=== PATIENT | female | born 1955 | race Caucasian/White ===

== ENCOUNTER 2022-01-24 13:43 | Outpatient (CLI) | payer MEDICARE | END 2022-01-24 13:44 | disposition home or self-care (01) | LOC: DTY/OP 13:43 | PROVIDERS: ATTEND Surgery | DX: E66.01 Morbid (severe) obesity due to excess calories (principal) | CPT/HCPCS: 97802 ==

== ENCOUNTER 2022-04-14 08:31 | Outpatient (CLI) | payer MEDICARE ==
[2022-04-14 09:55] LABS: #Eosinphils 0.2 10x3/uL (0.0-0.5); #Monocytes 0.6 10x3/uL (0.0-1.1); #Neutrophils 3.7 10x3/uL (1.5-8.4); %Basophils 0.5 % (0.0-2.0); %Eosinophils 3.1 % (0.0-6.0); %Lymphocytes 27.2 % (18.0-47.0); %Monocytes 9.2 % (0.0-10.0); %Neutrophils 59.8 % (40.0-75.0); Hemoglobin 13.9 g/dL (12.0-15.5); Mean Corpuscular HGB CONC 33.3 g/dL (32.0-36.0); Mean Corpuscular Hemoglobin 30.5 pg (27.0-33.0); Mean Corpuscular Volume 91.6 fl (81.6-98.3); Mean Platelet Volume 12.5 fl (7.4-10.4); Platelet Count 259 10x3/uL (150-450); RBC Distribution Width 13.2 % (11.5-14.5); Red Blood Cell (RBC) Count 4.55 10x6/uL (3.90-5.03); White Blood Cell (WBC) Count 6.1 10x3/uL (3.5-10.5)
[2022-04-14 10:59] LABS: ALT (SGPT) 37 U/L (8-55); AST (SGOT) 26 U/L (5-34); Albumin 4.1 g/dL (3.4-4.8); Alkaline Phosphatase 72 U/L (40-110); Anion Gap 14 mmol/L (10-20); BUN (Urea Nitrogen) 42 mg/dL (9.8-20.1); Bilirubin, Total 0.6 mg/dL (0.2-1.2); Calc. Creatinine Clearance 0 mL/min (70-130); Calcium 11.3 mg/dL (7.8-10.44); Carbon Dioxide 28 mmol/L (23-31); Chloride 103 mmol/L (98-107); Estimated GFR 51; Glucose 124 mg/dL (80-115); Potassium 4.1 mmol/L (3.5-5.1); Protein, Total 7.1 g/dL (5.8-8.1); Sodium 141 mmol/L (136-145)
[2022-04-14 12:35] LABS: Hemoglobin A1c 6.4 % (4.0-6.0)
== END 2022-04-14 08:32 | disposition home or self-care (01) ==
LOC: LABBT 08:31
PROVIDERS: ATTEND Surgery
DX: Z01.818 Encounter for other preprocedural examination (principal); K44.9 Diaphragmatic hernia without obstruction or gangrene; E66.01 Morbid (severe) obesity due to excess calories; Z20.822 Contact with and (suspected) exposure to COVID-19
CPT/HCPCS: 71046; 80053; 83036; 85025; 87811

== ENCOUNTER 2022-04-14 09:00 | Inpatient (IN) | payer MEDICARE ==
[2022-04-17 11:25] VITALS: BMI 42.4
[2022-04-19] MEDS ORDERED: fentaNYL Citrate/PF 100 MCG/2 ML SYRINGE ONE (06:28)
[2022-04-19] MEDS ORDERED: SUGAMMADEX SODIUM 200 MG/2 ML VIAL ONE ×2 (06:28→10:05)
[2022-04-19] MEDS ORDERED: Ketamine 50 MG/ML (10ML VIAL) ONE (06:28)
[2022-04-19] MEDS ORDERED: Heparin 5,000 UNITS/ML VIAL ONE (06:46)
[2022-04-19] MEDS ORDERED: Lidocaine 1% w/Epinephrine 1:200K 30 ML VIAL ONE (06:55)
[2022-04-19] MEDS ORDERED: Bupivacaine 0.25% 10 ML VIAL ONE (06:55)
[2022-04-19] MEDS ORDERED: Sodium Chloride 0.9% 100 ML ONE (07:22)
[2022-04-19] MEDS ORDERED: CEFAZOLIN 2 GM VIAL ONE (07:22)
[2022-04-19] MEDS ORDERED: Glycopyrrolate 0.2 MG/ML 5 ML SYRINGE ONE (07:41)
[2022-04-19] MEDS ORDERED: Lidocaine 1% PF 5 ML VIAL ONE (07:41)
[2022-04-19] MEDS ORDERED: PROPOFOL 200 MG/20 ML VIAL ONE (07:41)
[2022-04-19] MEDS ORDERED: ePHEDrine 50 MG/ML VIAL ONE (07:41)
[2022-04-19] MEDS ORDERED: Rocuronium Bromide 10 MG/ML (10ML VIAL) ONE (07:41)
[2022-04-19] MEDS ORDERED: Ondansetron PF 4 MG/2 ML Vial ONE (07:41)
[2022-04-19] MEDS ORDERED: Phenylephrine 10 MG/ML VIAL ONE (07:41)
[2022-04-19] MEDS ORDERED: Dexamethasone 20 MG/5 ML VIAL ONE (07:41)
[2022-04-19] MEDS ORDERED: Ondansetron HCl/PF 4 MG/2 ML Vial IVP PRN (08:28)
[2022-04-19] MEDS ORDERED: Promethazine HCl 25 MG/ML VIAL IVPB PRN (08:28)
[2022-04-19] MEDS ORDERED: Promethazine HCl 25 MG/ML VIAL IM PRN ×3 (08:28→10:20)
[2022-04-19] MEDS ORDERED: Dextrose 5% in Water 1,000 ML IV PRN (10:08)
[2022-04-19] MEDS ORDERED: Dextrose 50% Abboject 50 ML SYRINGE SLOW IVP PRN (10:08)
[2022-04-19] MEDS ORDERED: Hydrocodone-Acetamin 15 ML UDCUP PO PRN (10:08)
[2022-04-19] MEDS ORDERED: hydrALAZINE 20 MG/ML VIAL SLOW IVP PRN (10:08)
[2022-04-19] MEDS ORDERED: Ondansetron PF 4 MG/2 ML Vial IVP PRN (10:08)
[2022-04-19] MEDS ORDERED: diphenhydrAMINE 50 MG/ML VIAL IVP PRN ×2 (10:08→10:20)
[2022-04-19] MEDS ORDERED: ceFAZolin 2 GM/Dextrose 50 ML 2 GM in Premix Bag 1 BAG IVPB SCH (10:15)
[2022-04-19] MEDS ORDERED: diphenhydrAMINE 25 MG CAP PO PRN (10:20)
[2022-04-19] MEDS ORDERED: Naloxone HCl 0.4 mg/ml Vial IV PRN (10:20)
[2022-04-19] MEDS ORDERED: Zolpidem Tartrate 5 MG TAB PO PRN (10:20)
[2022-04-19] MEDS ORDERED: diphenhydrAMINE 50 MG/ML VIAL IM PRN (10:20)
[2022-04-19] MEDS ORDERED: fentaNYL Citrate/PF 2,000 MCG in Sodium Chloride 0.9% 60 ML IV PRN (10:20)
[2022-04-19] MEDS ORDERED: Communication Order-Pharmacy FS SCH (10:30)
[2022-04-19] MEDS ORDERED: Fentanyl 100 MCG/2 ML VIAL ONE (10:40)
[2022-04-19] MEDS ORDERED: D5 1/2 NS w/20 mEq KCL 1,000 ML ONE (10:56)
[2022-04-19] MEDS: Ondansetron PF 4 MG/2 ML Vial IVP PRN (16:17)
[2022-04-19] MEDS: CEFAZOLIN 2 GM in Sodium Chloride 0.9% 100 ML IVPB SCH ×2 (16:30→22:52)
[2022-04-19] MEDS: D5 1/2 NS w/20 mEq KCL 1,000 ML IV SCH ×2 (18:36)
[2022-04-20] MEDS: Ondansetron PF 4 MG/2 ML Vial IVP PRN ×2 (00:02→14:32)
[2022-04-20] MEDS: D5 1/2 NS w/20 mEq KCL 1,000 ML IV SCH ×3 (03:14→21:52)
[2022-04-20 05:15] LABS: #Lymphocytes 1.2 thou/uL (1.20-3.40); #Monocytes 0.8 thou/uL (0.11-0.59); #Neutrophils 10.7 thou/uL (1.40-6.50); %Basophils 0.1 % (0.0-1.0); %Eosinophils 0.2 % (0.0-10.0); %Lymphocytes 9.5 % (21.0-51.0); %Monocytes 6.1 % (0.0-10.0); %Neutrophils 84.1 % (42.0-75.0); Hemoglobin 12.5 g/dL (12.0-16.0); Mean Corpuscular Hemoglobin 31.6 pg (27.0-31.0); Mean Corpuscular Volume 95.7 fL (78.0-98.0); Mean Platelet Volume 10.1 fL (7.4-10.4); Platelet Count 203 thou/uL (130-400); RBC Distribution Width 12.4 % (11.5-14.5); Red Blood Cell (RBC) Count 3.97 mill/uL (4.20-5.40); White Blood Cell (WBC) Count 12.7 thou/uL (4.8-10.8)
[2022-04-20 05:40] LABS: Anion Gap 12 mmol/L (10-20); BUN (Urea Nitrogen) 20 mg/dL (9.8-20.1); Calc. Creatinine Clearance 75 mL/min (70-130); Calcium 9.4 mg/dL (7.8-10.44); Carbon Dioxide 27 mmol/L (23-31); Chloride 103 mmol/L (98-107); Estimated GFR 51; Glucose 160 mg/dL (80-115); Potassium 4.4 mmol/L (3.5-5.1); Sodium 138 mmol/L (136-145)
[2022-04-20] MEDS: Enoxaparin Sodium 40 MG/0.4 ML SYRINGE SC SCH (09:33)
[2022-04-20] MEDS: Pantoprazole 40 MG VIAL IVP SCH (09:33)
[2022-04-20] MEDS ORDERED: D5 0.9% NS w/ 20 mEq KCl 1,000 ML ONE (11:41)
[2022-04-21] MEDS: D5 1/2 NS w/20 mEq KCL 1,000 ML IV SCH ×2 (04:20→11:03)
[2022-04-21] MEDS ORDERED: Fentanyl 100 MCG/2 ML VIAL SLOW IVP PRN (07:57)
[2022-04-21 08:17] VITALS: BP 138/81; TEMP 97.9
[2022-04-21] MEDS: Enoxaparin Sodium 40 MG/0.4 ML SYRINGE SC SCH (09:18)
[2022-04-21] MEDS: Pantoprazole 40 MG VIAL IVP SCH (09:18)
== END 2022-04-21 11:45 | disposition home or self-care (01) | DRG 621 ==
LOC: SURG A 04-19 05:48 → SJJU 04-19 12:16
PROVIDERS: ADMIT Surgery; ATTEND Surgery
PROC: 0D164ZA Bypass Stomach to Jejunum, Percutaneous Endoscopic Approach (ICD-10-PCS; principal; 2022-04-19)
DX: E66.01 Morbid (severe) obesity due to excess calories (principal); Z20.822 Contact with and (suspected) exposure to COVID-19; I10 Essential (primary) hypertension; Z96.653 Presence of artificial knee joint, bilateral; K21.9 Gastro-esophageal reflux disease without esophagitis; Z90.49 Acquired absence of other specified parts of digestive tract; Z68.44 Body mass index [BMI] 60.0-69.9, adult; R13.10 Dysphagia, unspecified
CPT/HCPCS: 36415; 80048; 85025; A4649; C9113; J0690; J1100; J1644; J1650; J2370; J2405; J2550; J2704; J2710; J3010; J3480; J3490; S0020